=== PATIENT | male | born 1990 | race Caucasian/White ===

== ENCOUNTER 2016-12-18 14:48 | Emergency (ER) | payer OTHER ==
[~2016-12-18] VITALS: Ht 190.5 cm; Wt 97.5 kg
[~2016-12-18 14:48] MED LIST: CYCLOBENZAPRINE10 M1 PO; MOBIC15 M1 PO
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
--- NOTE | 2016-12-18 17:02 | RADIOLOGY REPORT ---
EXAMINATION: XR FOREARM, LEFT XR, ELBOW, LEFT CLINICAL INFORMATION: Fall, pain, weakness, pain refer to elbow COMPARISON: None TECHNIQUE: AP and lateral views of the left forearm were obtained. 2 views of the left elbow obtained FINDINGS: There is acute fracture of the head of the radius with minimal displacement. There is a small associated effusion within the elbow joint. The remainder of the radius appears intact. The ulna appears intact. The alignment of vertebral all of the left elbow is difficult to evaluate given the nonstandard views. No definite radiopaque foreign body. No abnormal soft tissue calcifications. IMPRESSION: Acute fracture of the left radial head with associated elbow effusion.
[2016-12-18] MEDS ORDERED: IBUPROFEN600 M1 PO (17:52)
[2016-12-18] MEDS ORDERED: VICODIN 5-3001 EACH PO (17:52)
[2016-12-18 18:01] VITALS: BP 130/60
== END 2016-12-18 18:02 ==
LOC: ERH 14:48
DX: S52.122A Displaced fracture of head of left radius, initial encounter for closed fracture (principal); S60.511A Abrasion of right hand, initial encounter; V18.0XXA Pedal cycle driver injured in noncollision transport accident in nontraffic accident, initial encounter; Y93.55 Activity, bike riding; Y92.9 Unspecified place or not applicable
CPT/HCPCS: 73070-LT; 73090-LT; 90471; 90714

== ENCOUNTER 2017-10-19 11:43 | Emergency (ER) | payer OTHER ==
[~2017-10-19] VITALS: Ht 190.5 cm; Wt 102.1 kg
[~2017-10-19 11:43] MED LIST changes: +IBUPROFEN600 M1 PO; +LOTRIMIN AF12 GM TOP; +PERMETHRIN60 GM TOP; +VICODIN 5-3001 EACH PO
--- NOTE | 2017-10-19 14:04 | ED INFLUENZA/URI COMPLAINT ---
History of Present Illness General Chief Complaint: Upper Respiratory Sx/Fever Stated Complaint: CONGESTION, VANN, COUGH, FEVER Source: patient Exam Limitations: no limitations Vital Signs & Intake/Output Vital Signs & Intake/Output Vital Signs Date Time Temp Pulse Resp B/P B/P Pulse O2 O2 Flow FiO2 Mean Ox Delivery Rate 10/19 1456 98 Room Air 10/19 1424 97.3 68 20 133/79 98 Room Air 10/19 1210 96.5 70 20 126/74 99 Room Air Allergies Coded Allergies: No Known Allergies (12/18/16) Reconcile Medications Benzonatate (Tessalon Perle) 100 MG CAPSULE 1 CAP PO TID PRN COUGH Desloratadine (Clarinex) 5 MG TABLET 1 TAB PO DAILY PRN ADENOVIRUS Fluticasone Propionate (Flonase Allergy Relief) 50 MCG/ACTUATION SPRAY.SUSP 2 SPRAY ISAURO DAILY PRN CONGESTION Triage Note: PT TO ED C/O URI S/S X 1 WEEK. AFEBRILE. Triage Nurses Notes Reviewed? yes Onset: Gradual Duration: constant Timing: recent history Severity: moderate Severity Numbers: 5 HPI: Patient is a 27-year-old male with an unremarkable past medical history of since emergency room with concerns of a one-week history of runny nose and intermittent tactile fevers chills body aches head congestion and mild sore throat and nonproductive cough. No similar sick contacts at home Denies any smoking history Past History Travel History Traveled to [place] past 21 day No Medical History Any Pertinent Medical History? 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 No Review of Systems Review of Systems Constitutional: Reports: see HPI. EENTM: Reports: see HPI, nasal congestion. Respiratory: Reports: see HPI, cough. Cardiovascular: Reports: no symptoms. GI: Reports: no symptoms. Genitourinary: Reports: no symptoms. Musculoskeletal: Reports: see HPI. Skin: Reports: no symptoms. Neurological/Psychological: Reports: see HPI. Hematologic/Endocrine: Reports: no symptoms. Immunologic/Allergic: Reports: no symptoms. All Other Systems: Reviewed and Negative Physical Exam Physical Exam General Appearance: no apparent distress, alert, comfortable Head: atraumatic Eyes: Bilateral: normal appearance, PERRL. Ears, Nose, Throat: moist mucous membrane, hearing grossly normal, Tympanic normal, pharynx normal, nasal congestion, nasal drainage, NONTENDER SINUS Neck: normal inspection Respiratory: normal breath sounds, chest non-tender, no respiratory distress Cardiovascular: regular rate/rhythm Extremities: normal inspection Neurologic/Psych: no motor/sensory deficits, awake Skin: intact, normal color, warm/dry Core Measures Sepsis Present: No Sepsis Focused Exam Completed? No Progress Differential Diagnosis: influenza, meningitis, neutropenia, otitis, pneumonia, pharyngitis, sinusitis Plan of Care: Orders Procedure Date/time Status RAPID VIRAL INFLUENZA A 10/19 1212 Complete Microbiology 10/19 1213 NASOPHARYN: Influenza Virus A & B Rapid Smear - COMP Patient and negative influenza afebrile nontoxic-appearing clear lungs auscultation Initial ED EKG: none Departure Departure Disposition: HOME OR SELF CARE Condition: Stable Clinical Impression Primary Impression: URI (upper respiratory infection) Secondary Impressions: Adenoviral infection Referrals: Unknown (PCP/Family) Additional Instructions: As discussed begin [id number] Sudafed as directed for your symptoms, begin the prescription Tessalon Perles for cough CLARINEX for symptoms, Flonase for congestion and meloxicam for pain and inflammation, prescription is waiting at [place] [facility]. If no better on Monday follow-up with your doctor if symptoms worsen return to emergency room Departure Forms: Customer Survey General Discharge Information Prescriptions: Current Visit Scripts Benzonatate (Tessalon Perle) 1 CAP PO TID PRN COUGH #15 CAP Desloratadine (Clarinex) 1 TAB PO DAILY PRN ADENOVIRUS #7 TAB Fluticasone Propionate (Flonase Allergy Relief) 2 SPRAY ISAURO DAILY PRN CONGESTION #1 BOT
[2017-10-19 14:24] VITALS: BP 133/79
[2017-10-19] MEDS ORDERED: CLARINEX5 M1 PO (14:44)
[2017-10-19] MEDS ORDERED: TESSALON PERLE100 M1 PO (14:44)
[2017-10-19] MEDS ORDERED: FLONASE ALLERG9.9 ML NAS (14:44)
== END 2017-10-19 14:57 ==
LOC: ERH 11:43
DX: J06.9 Acute upper respiratory infection, unspecified (principal); B34.0 Adenovirus infection, unspecified
CPT/HCPCS: 87804; 87804-59

== ENCOUNTER 2017-11-24 03:24 | Emergency (ER) | payer OTHER ==
[~2017-11-24] VITALS: Ht 190.5 cm; Wt 102.1 kg
[~2017-11-24 03:24] MED LIST changes: +CLARINEX5 M1 PO; +FLONASE ALLERG9.9 ML NAS; +TESSALON PERLE100 M1 PO
[2017-11-24 03:50] VITALS: BP 118/72
--- NOTE | 2017-11-24 04:56 | ED THROAT/DENTAL COMPLAINT ---
History of Present Illness General Chief Complaint: Sore Throat, Dental Pain Stated Complaint: SORE, AND SWOLLEN THROAT Source: patient Exam Limitations: no limitations Vital Signs & Intake/Output Vital Signs & Intake/Output Vital Signs Date Time Temp Pulse Resp B/P B/P Pulse O2 O2 Flow FiO2 Mean Ox Delivery Rate 11/24 0350 99.0 97 18 118/72 96 Room Air Allergies Coded Allergies: No Known Allergies (11/24/17) Reconcile Medications Benzonatate (Tessalon Perle) 100 MG CAPSULE 1 CAP PO TID PRN COUGH Desloratadine (Clarinex) 5 MG TABLET 1 TAB PO DAILY PRN ADENOVIRUS Fluticasone Propionate (Flonase Allergy Relief) 50 MCG/ACTUATION SPRAY.SUSP 2 SPRAY ISAURO DAILY PRN CONGESTION Triage Note: TRIAGE: PATIENT TO ER FROM HOME REPORTING +SORE THROAT X 2 DAYS, "FEEL LIKE I CAN'T RBEATHE," ALSO NOTED W/ INCREASED SALIVA, SLIGHT COUGHING. PATIENT SPEAKING W/ LOW VOLUME THOUGH SPEECH CLEAR. NO ACUTE RESP DISTRESS. PATIENT REPORTS +ANXIETY D/T FEELING OF SWOLLEN THROAT. Triage Nurses Notes Reviewed? yes HPI: Patient presents for evaluation of his severe constant sore throat that began gradually about 2 days ago. Patient also refers swollen glands and a mild cough but no outright fever. No known ill contacts. Past History Travel History Traveled to [place] past 21 day No Medical History Any Pertinent Medical History? 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 No Review of Systems Review of Systems Constitutional: Reports: no symptoms. EENTM: Reports: see HPI. Respiratory: Reports: no symptoms. Cardiovascular: Reports: no symptoms. GI: Reports: no symptoms. Genitourinary: Reports: no symptoms. Musculoskeletal: Reports: no symptoms. Skin: Reports: no symptoms. Neurological/Psychological: Reports: no symptoms. Hematologic/Endocrine: Reports: no symptoms. Immunologic/Allergic: Reports: no symptoms. All Other Systems: Reviewed and Negative Physical Exam Physical Exam Mouth/Throat: SEE BELOW Comments: Gen.: Well-nourished, well-developed, no acute respiratory distress. Malodorous breath. Head: Normocephalic, atraumatic. Eyes: Normal inspection bilaterally Ears: Normal inspection bilaterally Nose: Normal inspection Throat/mouth : Moist mucosa , bilateral oropharyngeal erythema without obvious exit 8, uvula midline Neck: Supple, full range of motion, no goiter, tender anterior cervical lymphadenopathy present Lungs: Quiet respirations Back: Normal range of motion Extremities: Normal range of motion grossly, no cyanosis clubbing or edema of the upper extremities Neurologic: Cranial nerves grossly intact, speech is clear Skin: warm and dry Psychiatric: Calm, cooperative, no apparent delusions or hallucinations Core Measures ACS in differential dx? No Sepsis Present: No Sepsis Focused Exam Completed? No Progress Differential Diagnosis: epiglottitis, Ludwigs angina, odontogenic abscess, angelito- tonsillar abscess, strep pharyngitis Plan of Care: Orders Procedure Date/time Status THROAT CULTURE W/QUICK STREP 11/24 353 Active Departure Departure Disposition: HOME OR SELF CARE Condition: Stable Clinical Impression Primary Impression: Streptococcal pharyngitis Referrals: Patient Has No Primary Care Dr (PCP/Family) Additional Instructions: Ibuprofen 600 mg every 6 hours as needed for sore throat pain and fever muscle aches or chills. Amoxicillin as prescribed for your throat infection. Tylenol with Codeine as needed for pain. Drink lots of fluids. Follow-up with your primary care physician if not improving over the next 72 hours. Return if any concerns or sudden worsening. If you do not currently have a primary care physician then please contact the [place] primary care practice at the following phone number: . Thank you for choosing the [facility] Emergency Department for your care. It was a pleasure to serve you today. Josafat Paul M.D. [facility] Departure Forms: Customer Survey General Discharge Information Prescriptions: Current Visit Scripts Tylenol With Codeine (Tylenol With Codeine #3 Tablet) 1 TAB PO Q6P PRN SORE THROAT PAIN #12 TAB Amoxicillin 1 CAP PO TID #30 CAP
[2017-11-24] MEDS ORDERED: AMOXICILLIN500 M2 PO (05:01)
[2017-11-24] MEDS ORDERED: TYLENOL WITH C1 EACH PO (05:01)
== END 2017-11-24 05:18 ==
LOC: ERH 03:24
DX: J02.0 Streptococcal pharyngitis (principal)